=== PATIENT | male | born 1950 | race Caucasian/White ===

== ENCOUNTER 2016-10-27 12:22 | Emergency (ER) | payer MEDICARE, MEDICAID ==
[2016-10-27 12:30] VITALS: TEMP 98.1
[2016-10-27] MEDS ORDERED: Sodium Chloride 0.9% 1,000 ML IV STA (12:46)
--- NOTE | 2016-10-27 12:52 | ED PDOC ---
HPI: General Adult Time Seen by Provider: 10/27/16 12:29 Chief Complaint (Nursing): Upper Extremity Problem/Injury Chief Complaint (Provider): tremors History Per: Patient History/Exam Limitations: no limitations Onset/Duration Of Symptoms: Days (4) Current Symptoms Are (Timing): Still Present Additional Complaint(s): Pt. with [place]'s has increased tremors for 4 days. Gets tremors routinely but worse now. Has a neuro transmitter that triggers less tremors when it is activated. Dr. Dia gets it activated, but did not have an appt available but was told to come to the ED. Pt. has no pain, weakness, headaches, dizziness, numbness, tingles, chest pain, dyspnea. No fall or hit his head. No neck pain. Past Medical History Reviewed: Nursing Documentation, Vital Signs Vital Signs: Last Vital Signs Temp 98.1 F 10/27/16 12:28 Pulse 70 10/27/16 12:28 Resp 20 10/27/16 12:28 BP 103/80 10/27/16 12:28 Pulse Ox 98 10/27/16 12:55 - Medical History PMH: Benign Prostatic Hyperplasia, COPD, Dementia, Diabetes (type II), Emphysema , Hepatitis (C), HTN, Hypercholesterolemia, Parkinson's Disease, Sleep Apnea - Surgical History Surgical History: Appendectomy, Hernia Repair (x 14 ) Other surgeries: nerve stimulator - Family History Family History: States: Unknown Family Hx - Social History Current smoker - smoking cessation education provided: No Alcohol: None Drugs: Denies - Home Medications Home Medications: Ambulatory Orders Medication Instructions Recorded Carbidopa/Levodopa [Sinemet 25-250 1 tab PO TID 11/01/14 25 mg-250 mg] Clonazepam [Clonazepam] 0.5 mg PO BID 11/01/14 Docusate Sodium [Docusate Sodium] 250 mg PO DAILY 11/01/14 Dutasteride [Avodart] 0.5 mg PO DAILY 11/01/14 Finasteride [Finasteride] 5 mg PO DAILY 11/01/14 Fluticasone Propionate 50 mcg LEOBARDO PRN PRN 11/01/14 [Fluticasone Propionate 120 ml] Gemfibrozil [Gemfibrozil] 600 mg PO BID 11/01/14 Memantine HCl [Namenda Xr] 7 mg PO DAILY 11/01/14 Metformin Hydrochloride [Metformin 500 mg PO BID 11/01/14 HCl] Mometasone/Formoterol [Dulera] 1 earnest INH PRN PRN 11/01/14 Omeprazole [Omeprazole] 20 mg PO DAILY 11/01/14 Paroxetine HCl [Paroxetine 20 mg PO DAILY 11/01/14 Hydrochloride] Pramipexole Di-HCl [Mirapex] 0.125 mg PO DAILY 11/01/14 Rotigotine [Neupro] 6 mg TD DAILY 11/01/14 Tamsulosin Hydrochloride 0.4 mg PO BID 11/01/14 [Tamsulosin Hydrochloride] Valsartan/Hydrochlorothiazide 1 tab PO DAILY 11/01/14 [Valsartan-Hydrochlorothiazide 12.5 mg-160 mg] Codeine Phosphate/Promethazi 5 ml PO Q6 #80 ml 01/22/15 [Promethazine with Codeine 10 mg/5 ml-6.25 mg/] Guaifenesin/Pseudoephedrne HCl 1 tab PO DAILY PRN #30 ter 01/22/15 [Mucinex D 600 mg-60 mg] Azithromycin 250 mg PO DAILY #6 tab 06/28/15 Prednisone 40 mg PO DAILY #8 tab 06/28/15 Ciprofloxacin/Ciprofloxa HCl 500 mg PO BID #20 ter 11/16/15 [Ciprofloxacin] Cyclobenzaprine [Cyclobenzaprine 10 mg PO TID PRN #15 tab 06/12/16 HCl] Naproxen [Naprosyn] 500 mg PO BID #20 tab 06/12/16 traMADol [Ultram] 50 mg PO TID PRN #15 tab 06/27/16 - Allergies Allergies/Adverse Reactions: Allergies Allergy/AdvReac Type Severity Reaction Status Date / Time iodine Allergy URTICARIA Verified 10/27/16 12:27 latex Allergy URTICARIA Verified 10/27/16 12:27 Review of Systems ROS Statement: Except As Marked, All Systems Reviewed And Found Negative Neurological: Positive for: Other (tremors) Physical Exam - Reviewed Nursing Documentation Reviewed: Yes Vital Signs Reviewed: Yes - Physical Exam Appears: Positive for: Non-toxic, No Acute Distress Head Exam: Positive for: ATRAUMATIC, NORMAL INSPECTION, NORMOCEPHALIC Skin: Positive for: Normal Color, Warm, DRY Eye Exam: Positive for: EOMI, Normal appearance, PERRL ENT: Positive for: Normal ENT Inspection Neck: Positive for: Normal, Painless ROM Cardiovascular/Chest: Positive for: Regular Rate, Rhythm Respiratory: Positive for: CNT, Normal Breath Sounds Gastrointestinal/Abdominal: Positive for: Normal Exam, Bowel Sounds, Soft Back: Positive for: Normal Inspection. Negative for: L CVA Tenderness, R CVA Tenderness Extremity: Positive for: Normal ROM. Negative for: Tenderness, Pedal Edema Neurologic/Psych: Positive for: Alert, block greaser II-XII, Oriented, Other (tremors and shakes of different extremities sporadically). Negative for: Motor/Sensory Deficits - Laboratory Results Result Diagrams: 10/27/16 12:51 10/27/16 12:51 Interpretation Of Abn Labs: 22 bun - ECG Interpretation Of Abn EKG: afib rate controlled Interpretation Of ECnd ekg: afib controlled O2 Sat by Pulse Oximetry: 98 Pulse Ox Interpretation: Normal - Progress ED Course And Treament: 1619: Stable. Attempts made to contact Dr. Dia, pt. neurologist. No response. Pt. ekg shows afib. No old. Spoke with pcp Dr. Gallagher. Old EKG 2014 is sinus. Pt. with no chest pain. Complains about falling if he leaves and not able to go to pcp office. Spoke with [facility] for Dr. Sparks. Will admit tele. obs. No anticoagulant. Pt. fall risk. Will give asa 81mg. Disposition - Clinical Impression Clinical Impression: New onset atrial fibrillation, Parkinsonian features - Patient ED Disposition Is Patient to be Admitted: Yes Counseled Patient/Family Regarding: Studies Performed, Diagnosis - Disposition Disposition Time: 16:31 Condition: FAIR - Pt Status Changed To: Hospital Disposition Of: Observation - POA Present On Arrival: None
[2016-10-27 13:12] LABS: BASO % 0.7 % (0.0-2.0); EOS # 0.2 K/uL (0.0-0.7); EOS % 2.5 % (0.0-4.0); HEMATOCRIT 36.5 % (35.0-51.0); LYMPH # 2.2 K/uL (1.0-4.3); LYMPH % 35.1 % (20.0-40.0); MEAN CELL VOLUME 95.9 fl (80.0-94.0); MEAN CORPUSCULAR HEMOGLOBIN 31.9 pg (27.0-31.0); MEAN CORPUSCULAR HGB CONC 33.2 g/dL (33.0-37.0); MEAN PLATELET VOLUME 7.8 fl (7.2-11.7); MONO # 0.5 K/uL (0.0-0.8); MONO % 8.3 % (0.0-10.0); NEUT # 3.3 K/uL (1.8-7.0); NEUT % 53.4 % (50.0-75.0); RED CELL DISTRIBUTION WIDTH 13.8 % (11.5-14.5); WHITE BLOOD COUNT 6.2 K/uL (4.8-10.8)
[2016-10-27 13:21] LABS: ALB/GLOB RATIO 1.3 (1.0-2.1); ALCOHOL SERUM < 10 mg/dl (0-10); ALKALINE PHOSPHATASE 91 U/L (38-126); ALT/SGPT 28 U/L (21-72); AST/SGOT 27 U/L (17-59); BILIRUBIN,TOTAL 0.5 mg/dl (0.2-1.3); BLOOD UREA NITROGEN 24 mg/dl (9-20); CALCIUM 9.8 mg/dL (8.4-10.2); CARBON DIOXIDE 22 mmol/L (22-30); CHLORIDE 110 mmol/L (98-107); GFR AFRICAN-AMERICAN > 60; GLUCOSE,RANDOM 105 mg/dL (75-110); POTASSIUM 4.7 MMOL/L (3.6-5.0); SODIUM 139 mmol/l (132-148); TOTAL PROTEIN 7.7 G/DL (6.3-8.2)
--- NOTE | 2016-10-27 13:43 | CT ---
PROCEDURE: CT HEAD WITHOUT CONTRAST. HISTORY: tremors COMPARISON: None available. TECHNIQUE: Axial computed tomography images were obtained through the head/brain without intravenous contrast. Radiation dose: Total exam DLP = 1192.70 mGy-cm. FINDINGS: HEMORRHAGE: No intracranial hemorrhage. BRAIN: No mass effect or edema. No evidence of acute infarct. Bilateral external stimulator wires extent through the high frontal calvarium through the basal ganglia to the thalami/ cerebral peduncle AMY bilaterally. VENTRICLES: No hydrocephalus. Small cavum septum pellucidum. CALVARIUM: Unremarkable. PARANASAL SINUSES: Chronic sphenoid, ethmoid and left maxillary sinusitis. MASTOID AIR CELLS: Unremarkable as visualized. No inflammatory changes. OTHER FINDINGS: None. IMPRESSION: No evidence of intracranial hemorrhage or acute infarct. No intracranial mass. Bilateral external stimulator wires noted as above. Chronic paranasal sinusitis.
--- NOTE | 2016-10-27 13:51 | RAD ---
HISTORY: tremors COMPARISON: 06/28/2015 FINDINGS: LUNGS: No active pulmonary disease. PLEURA: No significant pleural effusion identified, no pneumothorax apparent. CARDIOVASCULAR: Normal. OSSEOUS STRUCTURES: No significant abnormalities. VISUALIZED UPPER ABDOMEN: Normal. OTHER FINDINGS: Electronic nodule overlying upper right karli thorax, laterally. IMPRESSION: No active disease.
[2016-10-27 20:10] VITALS: BP 120/70; PULSE 60; RESP 18; O2SAT 97
--- NOTE | 2016-10-30 10:11 | CARD ---
APPROVED REPORT EKG Measurement Heart [id number] <Conclusion> Sinus Bradycardia Baseline Artifact Repeat EKG
--- NOTE | 2016-10-30 10:17 | CARD ---
APPROVED REPORT EKG Measurement Heart [id number] <Conclusion> Sinus Bradycardia Baseline Artifact Repeat EKG
== END 2016-10-27 17:00 | disposition home or self-care (01) ==
LOC: H.ER 12:22 → UNDOADMOB 16:18 → H.ERHOLD 16:18 → H.ER 17:00
DX: I48.91 Unspecified atrial fibrillation (principal); G20 Parkinson's disease; I10 Essential (primary) hypertension
CPT/HCPCS: 70450; 71010; 80053; 82948; 84484; 85025; 99283; G0480; J7040

== ENCOUNTER 2016-12-23 14:26 | Emergency (ER) | payer MEDICARE, MEDICAID ==
[2016-12-23 14:31] VITALS: BP 140/90; TEMP 98.3; O2SAT 99
[2016-12-23 14:59] VITALS: RESP 20
[2016-12-23] MEDS ORDERED: Albuterol-Ipratrop 3 mg / 0.5 (3 ml) UD INH STA (15:13)
--- NOTE | 2016-12-23 15:15 | ED PDOC ---
HPI: SOB/CHF/COPD Time Seen by Provider: 12/23/16 14:41 Chief Complaint (Nursing): Shortness Of Breath Chief Complaint (Provider): Shortness of Breath History Per: Patient History/Exam Limitations: no limitations Onset/Duration Of Symptoms: Days (for a few years), Worse Since (over the weekend) Current Symptoms Are (Timing): Still Present Initiating Event: Out Of Medications Context: patient has emphysema and ran out of his albuterol solution at home Current Respiratory Medications: See Home Med List, Albuterol, Steroid Inhaler, Other (anthramycin) Severity: Moderate Associated Symptoms: Other (dry cough). denies: Fever, Chest Pain, Bloody Cough , Productive Cough, Ankle/Leg Swelling Additional Complaint(s): Choco Magallanes is a 66 year old male, with a past medical history of chronic obstructive pulmonary disease, emphysema, type II diabetes mellitus, hypertension, and Parkinson's disease, who presents to the emergency department for the evaluation of shortness of breath, that the patient has been experiencing for a few years. Patient believes that his symptoms are due to his emphysema which is currently acting up, causing his shortness of breath to worsen, and prompting his visit to the emergency room. He saw a doctor on Sunday who prescribed him steroids and Anthramycin, and has since then run out of the antibiotics. Patient states that he has been using 2.5 mg of Albuterol solution at home, but has recently ran out, which he believes is the root of the cause of his worsening symptoms. Associated dry cough is currently present. Denies a fever, chest pain, or leg swelling. Of note, patient was recently seen in this emergency room and worked up for atrial fibrillation; however, all of his test work came back negative. PMD: Mague Gallagher Past Medical History Reviewed: Historical Data, Nursing Documentation, Vital Signs Vital Signs: Last Vital Signs Temp 98.3 F 12/23/16 14:28 Pulse 54 L 12/23/16 16:08 Resp 20 12/23/16 14:57 BP 140/90 12/23/16 14:28 Pulse Ox 99 12/23/16 16:08 - Medical History PMH: Benign Prostatic Hyperplasia, COPD, Dementia, Diabetes (type II), Emphysema , Hepatitis (C), HTN, Hypercholesterolemia, Parkinson's Disease, Sleep Apnea - Surgical History Surgical History: Appendectomy, Hernia Repair (x14) Other surgeries: "Brain Surgery" - Family History Family History: States: No Known Family Hx - Social History Current smoker - smoking cessation education provided: Yes (Light smoker <10 cigarettes daily) Alcohol: None Drugs: Opiates (heroin) - Home Medications Home Medications: Ambulatory Orders Medication Instructions Recorded Carbidopa/Levodopa [Sinemet 25-250 1 tab PO TID 11/01/14 25 mg-250 mg] Clonazepam [Clonazepam] 0.5 mg PO BID 11/01/14 Docusate Sodium [Docusate Sodium] 250 mg PO DAILY 11/01/14 Dutasteride [Avodart] 0.5 mg PO DAILY 11/01/14 Finasteride [Finasteride] 5 mg PO DAILY 11/01/14 Fluticasone Propionate 50 mcg LEOBARDO PRN PRN 11/01/14 [Fluticasone Propionate 120 ml] Gemfibrozil [Gemfibrozil] 600 mg PO BID 11/01/14 Memantine HCl [Namenda Xr] 7 mg PO DAILY 11/01/14 Metformin Hydrochloride [Metformin 500 mg PO BID 11/01/14 HCl] Mometasone/Formoterol [Dulera] 1 earnest INH PRN PRN 11/01/14 Omeprazole [Omeprazole] 20 mg PO DAILY 11/01/14 Paroxetine HCl [Paroxetine 20 mg PO DAILY 11/01/14 Hydrochloride] Pramipexole Di-HCl [Mirapex] 0.125 mg PO DAILY 11/01/14 Rotigotine [Neupro] 6 mg TD DAILY 11/01/14 Tamsulosin Hydrochloride 0.4 mg PO BID 11/01/14 [Tamsulosin Hydrochloride] Valsartan/Hydrochlorothiazide 1 tab PO DAILY 11/01/14 [Valsartan-Hydrochlorothiazide 12.5 mg-160 mg] Codeine Phosphate/Promethazi 5 ml PO Q6 #80 ml 01/22/15 [Promethazine with Codeine 10 mg/5 ml-6.25 mg/] Guaifenesin/Pseudoephedrne HCl 1 tab PO DAILY PRN #30 ter 01/22/15 [Mucinex D 600 mg-60 mg] Azithromycin 250 mg PO DAILY #6 tab 06/28/15 Prednisone 40 mg PO DAILY #8 tab 06/28/15 Ciprofloxacin/Ciprofloxa HCl 500 mg PO BID #20 ter 11/16/15 [Ciprofloxacin] Cyclobenzaprine [Cyclobenzaprine 10 mg PO TID PRN #15 tab 06/12/16 HCl] Naproxen [Naprosyn] 500 mg PO BID #20 tab 06/12/16 traMADol [Ultram] 50 mg PO TID PRN #15 tab 06/27/16 Albuterol 0.083% [Albuterol 0.083% 2.5 mg IH Q4 PRN #20 neb 12/23/16 Inhal Felipa (2.5 mg/3 ml) UD] Albuterol HFA [Ventolin HFA 90 2 puff IH [id number] #1 inh 12/23/16 mcg/actuation (8 g)] - Allergies Allergies/Adverse Reactions: Allergies Allergy/AdvReac Type Severity Reaction Status Date / Time iodine Allergy URTICARIA Verified 10/27/16 12:27 latex Allergy URTICARIA Verified 10/27/16 12:27 Review of Systems ROS Statement: Except As Marked, All Systems Reviewed And Found Negative Constitutional: Negative for: Fever Cardiovascular: Negative for: Chest Pain, Edema (leg swelling) Respiratory: Positive for: Cough, Shortness of Breath. Negative for: Hemoptysis , Sputum Physical Exam - Reviewed Nursing Documentation Reviewed: Yes Vital Signs Reviewed: Yes - Physical Exam Appears: Positive for: Well, Non-toxic, No Acute Distress Head Exam: Positive for: ATRAUMATIC, NORMOCEPHALIC Skin: Positive for: Normal Color, Warm, Dry Cardiovascular/Chest: Positive for: Regular Rate, Rhythm, Other (implanted device to R chest). Negative for: Murmur Respiratory: Positive for: Normal Breath Sounds. Negative for: Respiratory Distress Gastrointestinal/Abdominal: Positive for: Normal Exam, Soft. Negative for: Tenderness Extremity: Positive for: Normal ROM. Negative for: Tenderness, Swelling Neurologic/Psych: Positive for: Alert, Oriented - Laboratory Results Result Diagrams: 12/23/16 15:49 12/23/16 15:49 - ECG ECG Rhythm: Positive for: Normal QRS, Normal ST Segment, Sinus Rhythm, Sinus Bradycardia. Negative for: ST/T Changes Rate: 54 O2 Sat by Pulse Oximetry: 99 (RA) Pulse Ox Interpretation: Normal - Radiology X-Ray: Interpreted by Me, Viewed By Me X-Ray Interpretation: No Acute Disease, COPD - Progress Re-evaluation Time: 16:55 Condition: Re-examined, Improved Medical Decision Making Medical Decision Makin:41 Initial Impression: COPD Emphysema Differential Diagnoses include, but are not limited to, pneumonia and congestive heart failure. Initial Plan: * Chest X-Ray * EKG * CBC * BMP * BNP * Troponin I * Albuterol/Ipratropium 3 ml INH * predniSONE 60 mg PO * Peak Flow Pre/Post Treatment * Reevaluation 15:52 EKG read at a rate of 54 with Sinus Bradycardia, Normal QRS, and No ST/T Changes. Scribe Attestation: Documented by Eddie Estrella, acting as a scribe for Maicol Cramer MD. Provider Scribe Attestation: All medical record entries made by the Scribe were at my direction and personally dictated by me. I have reviewed the chart and agree that the record accurately reflects my personal performance of the history, physical exam, medical decision making, and the department course for this patient. I have also personally directed, reviewed, and agree with the discharge instructions and disposition. Disposition - Clinical Impression Clinical Impression: COPD (chronic obstructive pulmonary disease) - Patient ED Disposition Is Patient to be Admitted: No Doctor Will See Patient In The: Office Counseled Patient/Family Regarding: Studies Performed, Diagnosis, Need For Followup - Disposition Referrals: Mague Gallagher MD [Medical Doctor] - Disposition: Routine/Home Disposition Time: 16:57 Condition: GOOD Additional Instructions: Follow up with your PCP in 2-3 days. Return for worsening. Prescriptions: Albuterol HFA [Ventolin HFA 90 mcg/actuation (8 g)] 2 puff IH [id number] #1 inh Albuterol 0.083% [Albuterol 0.083% Inhal Felipa (2.5 mg/3 ml) UD] 2.5 mg IH Q4 PRN #20 neb PRN Reason: Cough Instructions: Emphysema (ED)
[2016-12-23] MEDS ORDERED: Albuterol-Ipratrop 3 mg / 0.5 (3 ml) UD ONE (15:34)
[2016-12-23 16:02] LABS: BLOOD UREA NITROGEN 27 mg/dl (9-20); CALCIUM 9.3 mg/dL (8.4-10.2); CARBON DIOXIDE 21 mmol/L (22-30); CHLORIDE 109 mmol/L (98-107); GFR AFRICAN-AMERICAN > 60; GLUCOSE,RANDOM 142 mg/dL (75-110); POTASSIUM 4.4 MMOL/L (3.6-5.0); SODIUM 143 mmol/l (132-148)
[2016-12-23 16:08] VITALS: PULSE 54
[2016-12-23 16:08] LABS: BASO % 0.6 % (0.0-2.0); EOS # 0.1 K/uL (0.0-0.7); EOS % 2.1 % (0.0-4.0); HEMATOCRIT 34.4 % (35.0-51.0); LYMPH # 1.6 K/uL (1.0-4.3); LYMPH % 29.9 % (20.0-40.0); MEAN CORPUSCULAR HEMOGLOBIN 32.1 pg (27.0-31.0); MEAN CORPUSCULAR HGB CONC 33.8 g/dL (33.0-37.0); MEAN PLATELET VOLUME 8.3 fl (7.2-11.7); MONO # 0.3 K/uL (0.0-0.8); MONO % 5.6 % (0.0-10.0); NEUT # 3.2 K/uL (1.8-7.0); NEUT % 61.8 % (50.0-75.0); NRBC % 0.1 % (0.0-0.0); RED CELL DISTRIBUTION WIDTH 13.8 % (11.5-14.5); WHITE BLOOD COUNT 5.3 K/uL (4.8-10.8)
--- NOTE | 2016-12-24 08:53 | RAD ---
HISTORY: dyspnea COMPARISON: No prior. TECHNIQUE: Chest PA and lateral FINDINGS: LUNGS: No active pulmonary disease. PLEURA: No significant pleural effusion identified. No pneumothorax apparent. CARDIOVASCULAR: Normal. Pacemaker leads in place. OSSEOUS STRUCTURES: No significant abnormalities. VISUALIZED UPPER ABDOMEN: Normal. OTHER FINDINGS: None. IMPRESSION: No active disease.
--- NOTE | 2016-12-25 09:01 | CARD ---
APPROVED REPORT EKG Measurement Heart [id number] <Conclusion> Sinus bradycardia with marked sinus arrhythmia Left axis deviation Nonspecific ST abnormality Abnormal ECG
== END 2016-12-23 16:55 | disposition home or self-care (01) ==
LOC: H.ER 14:26
DX: J43.9 Emphysema, unspecified (principal); E11.9 Type 2 diabetes mellitus without complications; E78.00 Pure hypercholesterolemia, unspecified; F03.90 Unspecified dementia, unspecified severity, without behavioral disturbance, psychotic disturbance, mood disturbance, and anxiety; G20 Parkinson's disease; I10 Essential (primary) hypertension; Z79.84 Long term (current) use of oral hypoglycemic drugs; J44.9 Chronic obstructive pulmonary disease, unspecified; R06.02 Shortness of breath; G47.30 Sleep apnea, unspecified; F17.210 Nicotine dependence, cigarettes, uncomplicated; R00.1 Bradycardia, unspecified

== ENCOUNTER 2017-05-01 07:04 | Day surgery (SDC) | payer MEDICARE, MEDICAID ==
[2017-05-01] MEDS: Lactated Ringer's 500 ML IV ONE (07:33)
[2017-05-01] MEDS ORDERED: Propofol 10 mg/ml Inj (20 ML) ONE (08:19)
[2017-05-01] MEDS ORDERED: ePHEDrine 50 mg/ml Inj ONE (08:59)
[2017-05-01 09:34] VITALS: BP 89/56; PULSE 57; RESP 16; TEMP 97.2; O2SAT 100
== END 2017-05-01 09:43 | disposition home or self-care (01) ==
LOC: H.ENDO 07:04
PROVIDERS: ATTEND Internal Medicine Gastroenterology
DX: Z12.11 Encounter for screening for malignant neoplasm of colon (principal); K64.1 Second degree hemorrhoids; K30 Functional dyspepsia; K44.9 Diaphragmatic hernia without obstruction or gangrene; K29.70 Gastritis, unspecified, without bleeding; K20.9 Esophagitis, unspecified
CPT/HCPCS: 43239; 82948; 88305; G0121; J2704; J7120

== ENCOUNTER 2017-08-12 01:48 | Emergency (ER) | payer MEDICARE, MEDICAID ==
[2017-08-12 01:54] VITALS: BP 147/69; PULSE 54; RESP 18; TEMP 97.1; O2SAT 97
--- NOTE | 2017-08-12 02:17 | ED PDOC ---
HPI: General Adult Time Seen by Provider: 08/12/17 02:02 Chief Complaint (Nursing): ENT Problem Chief Complaint (Provider): Epistaxis History Per: Patient History/Exam Limitations: no limitations Onset/Duration Of Symptoms: Hrs (x2), Persistent Current Symptoms Are (Timing): Gone Now Additional Complaint(s): 67 year old male presents to ED with complaints of persistent epistaxis x2 hours , has a past medical history including but not limited to peripheral vascular disease, HTN, DM (Type II), and COPD and notes that he is taking Clavix. Patient states he blew his nose and has had persistent bleeding from the left nostril since then. By time of evaluation, patient's bleeding has resolved. PCP: Kim Past Medical History Reviewed: Historical Data, Nursing Documentation, Vital Signs Vital Signs: Last Vital Signs Temp 97.1 F L 08/12/17 01:52 Pulse 54 L 08/12/17 01:52 Resp 18 08/12/17 01:52 BP 147/69 08/12/17 01:52 Pulse Ox 97 08/12/17 02:19 - Medical History PMH: Arthritis, Benign Prostatic Hyperplasia, Bipolar Disorder, COPD, Dementia, Diabetes (type II), Emphysema, Hepatitis (C), HTN, Hypercholesterolemia, Parkinson's Disease, Sleep Apnea Denies: Chronic Kidney Disease - Surgical History Surgical History: Appendectomy, Endoscopy, Hernia Repair (x14) - Family History Family History: States: Unknown Family Hx - Social History Current smoker - smoking cessation education provided: No Ex-Smoker (has not smoked in the last 12 months): No Alcohol: None Drugs: Opiates (Heroin x1 year ago) - Home Medications Home Medications: Ambulatory Orders Medication Instructions Recorded Atorvastatin [Lipitor] 10 mg PO DAILY 05/01/17 Cephalexin [cephalexin] 500 mg PO BID 05/01/17 Clonazepam [Klonopin] 0.5 mg PO BID 05/01/17 Dutasteride [Avodart] 0.5 mg PO DAILY 05/01/17 Gemfibrozil [Lopid] 600 mg PO BID 05/01/17 Lurasidone Hydrochloride [Latuda] 40 mg PO DAILY 05/01/17 Meloxicam [Mobic] 15 mg PO DAILY 05/01/17 Memantine HCl [Namenda Xr] 28 mg PO DAILY 05/01/17 Omeprazole 20 mg PO DAILY 05/01/17 Tamsulosin [Flomax] 0.8 mg PO DAILY 05/01/17 Topiramate [Topamax] 100 mg PO TID 05/01/17 Valsartan/Hydrochlorothiazide 1 each PO DAILY 05/01/17 [Diovan Hct 160-12.5 mg Tab] metFORMIN [glucOPHAGE] 500 mg PO BID 05/01/17 Oxymetazoline 0.05% [Oxymetazoline 1 spr NS TID #1 bottle 08/12/17 HCl 30 Ml] - Allergies Allergies/Adverse Reactions: Allergies Allergy/AdvReac Type Severity Reaction Status Date / Time iodine Allergy URTICARIA Verified 06/23/17 13:44 latex Allergy URTICARIA Verified 06/23/17 13:44 Review of Systems ROS Statement: Except As Marked, All Systems Reviewed And Found Negative ENT: Positive for: Other (Epistaxis) Physical Exam - Reviewed Nursing Documentation Reviewed: Yes Vital Signs Reviewed: Yes - Physical Exam Appears: Positive for: Non-toxic, No Acute Distress Head Exam: Positive for: ATRAUMATIC Skin: Positive for: Normal Color, Warm, Dry Eye Exam: Positive for: Normal appearance, EOMI, PERRL ENT: Positive for: Normal ENT Inspection (No active bleeding in the nares. No dried blood in nostrils.), Pharynx Is (Clear) Neck: Positive for: Normal, Painless ROM, Supple Neurologic/Psych: Positive for: Alert, Oriented - ECG O2 Sat by Pulse Oximetry: 97 (RA) Pulse Ox Interpretation: Normal Medical Decision Making Medical Decision Makin Initial impression: epistaxis Initial plan: Patient is stable for discharge home. Provider recommends patient to return to ED if bleeding recurs and is uncontrollable. Scribe Attestation: Documented by Marissa Chaves acting as a scribe for Maicol Cramer MD. Scribe Attestation: All medical record entries made by the Scribe were at my direction and personally dictated by me. I have reviewed the chart and agree that the record accurately reflects my personal performance of the history, physical exam, medical decision making, and the department course for this patient. I have also personally directed, reviewed, and agree with the discharge instructions and disposition. Disposition - Clinical Impression Clinical Impression: Nosebleed - Disposition Referrals: Keren Sparks MD [Staff Provider] - Disposition: Routine/Home Disposition Time: 02:19 Condition: STABLE Additional Instructions: Use nasal saline spray every day. Use afrin when bleeding starts. Hold pressure for 15 min when bleeding. Return for prolonged recurrent bleeding. Prescriptions: Oxymetazoline 0.05% [Oxymetazoline HCl 30 Ml] 1 spr NS TID #1 bottle Instructions: Nosebleed (ED) Forms: [employer] ([place])
== END 2017-08-12 02:24 | disposition home or self-care (01) ==
LOC: H.ER 01:48
DX: R04.0 Epistaxis (principal); E11.9 Type 2 diabetes mellitus without complications; E78.00 Pure hypercholesterolemia, unspecified; F03.90 Unspecified dementia, unspecified severity, without behavioral disturbance, psychotic disturbance, mood disturbance, and anxiety; F31.9 Bipolar disorder, unspecified; G20 Parkinson's disease; I10 Essential (primary) hypertension; Z79.84 Long term (current) use of oral hypoglycemic drugs

== ENCOUNTER 2017-12-17 23:39 | Emergency (ER) | payer MEDICARE, MEDICAID ==
[2017-12-17 23:48] VITALS: BMI 32.1
[2017-12-18 00:06] VITALS: BP 133/83; PULSE 56; RESP 18; TEMP 99.1; O2SAT 99
--- NOTE | 2017-12-18 00:28 | ED PDOC ---
HPI: Male Pain Time Seen by Provider: 12/17/17 23:52 Chief Complaint (Nursing): Male Genitourinary Chief Complaint (Provider): Male Genitourinary History Per: Patient History/Exam Limitations: no limitations Associated Symptoms: denies: Fever, Vomiting Additional Complaint(s): 67 years old x-drug abuser male with history of diabetes, hypertension, Parkinson and COPD presents to the ED requiring assistance in attaching a leg bag after he had a prostate surgery earlier today at [facility] by Dr. Gutierrez. Patient denies any pain, fever or vomiting. PMD: non provided Past Medical History Reviewed: Historical Data, Nursing Documentation, Vital Signs Vital Signs: Last Vital Signs Temp 99.1 F 12/18/17 00:02 Pulse 56 L 12/18/17 00:02 Resp 18 12/18/17 00:02 BP 133/83 12/18/17 00:02 Pulse Ox 99 12/18/17 00:02 - Medical History PMH: Arthritis, Benign Prostatic Hyperplasia, Bipolar Disorder, COPD, Dementia, Diabetes (type II), Emphysema, Hepatitis (C), HTN, Hypercholesterolemia, Parkinson's Disease, Sleep Apnea Denies: Chronic Kidney Disease - Surgical History Surgical History: Appendectomy, Endoscopy, Hernia Repair (x14) - Family History Family History: States: Unknown Family Hx - Social History Current smoker - smoking cessation education provided: No Alcohol: None Drugs: Denies - Home Medications Home Medications: Ambulatory Orders Medication Instructions Recorded Atorvastatin [Lipitor] 10 mg PO DAILY 05/01/17 Cephalexin [cephalexin] 500 mg PO BID 05/01/17 Clonazepam [Klonopin] 0.5 mg PO BID 05/01/17 Dutasteride [Avodart] 0.5 mg PO DAILY 05/01/17 Gemfibrozil [Lopid] 600 mg PO BID 05/01/17 Lurasidone Hydrochloride [Latuda] 40 mg PO DAILY 05/01/17 Meloxicam [Mobic] 15 mg PO DAILY 05/01/17 Memantine HCl [Namenda Xr] 28 mg PO DAILY 05/01/17 Omeprazole 20 mg PO DAILY 05/01/17 Tamsulosin [Flomax] 0.8 mg PO DAILY 05/01/17 Topiramate [Topamax] 100 mg PO TID 05/01/17 Valsartan/Hydrochlorothiazide 1 each PO DAILY 05/01/17 [Diovan Hct 160-12.5 mg Tab] metFORMIN [glucOPHAGE] 500 mg PO BID 05/01/17 Oxymetazoline 0.05% [Oxymetazoline 1 spr NS TID #1 bottle 08/12/17 HCl 30 Ml] - Allergies Allergies/Adverse Reactions: Allergies Allergy/AdvReac Type Severity Reaction Status Date / Time iodine Allergy URTICARIA Verified 12/17/17 23:48 latex Allergy URTICARIA Verified 12/17/17 23:48 Review of Systems ROS Statement: Except As Marked, All Systems Reviewed And Found Negative Constitutional: Negative for: Fever Gastrointestinal: Negative for: Vomiting Physical Exam - Reviewed Nursing Documentation Reviewed: Yes - Physical Exam Appears: Positive for: Non-toxic, No Acute Distress Head Exam: Positive for: ATRAUMATIC, NORMOCEPHALIC Skin: Positive for: Normal Color, Warm, Dry Cardiovascular/Chest: Positive for: Regular Rate, Rhythm. Negative for: Murmur Respiratory: Positive for: Normal Breath Sounds. Negative for: Respiratory Distress Gastrointestinal/Abdominal: Positive for: Normal Exam, Soft, Other (heart with leg bag drainining minimal clear urine). Negative for: Tenderness Extremity: Positive for: Normal ROM Neurologic/Psych: Positive for: Alert, Oriented - ECG O2 Sat by Pulse Oximetry: 99 (RA) Pulse Ox Interpretation: Normal Medical Decision Making Medical Decision Making: Time: 1217 Catheter is properly attached by the RN, no leaking now.. Patient reports improvement and is stable for discharge. he will follow up with Dr Gutierrez. Scribe Attestation: Documented by Gema Guzman, acting as a scribe for Santiago Colin MD. Provider Scribe Attestation: All medical record entries made by the Scribe were at my direction and personally dictated by me. I have reviewed the chart and agree that the record accurately reflects my personal performance of the history, physical exam, medical decision making, and the department course for this patient. I have also personally directed, reviewed, and agree with the discharge instructions and disposition. Disposition - Clinical Impression Clinical Impression: Examination, medical, general - Patient ED Disposition Is Patient to be Admitted: No Counseled Patient/Family Regarding: Studies Performed, Diagnosis, Need For Followup - Disposition Disposition: Routine/Home Disposition Time: 00:00 Condition: IMPROVED Additional Instructions: follow up with Dr Gutierrez at [place] as instructed return to the ED with any worsening or concerning symptoms Instructions: How to Care for Your Heart Catheter, Male Forms: [facility] ([place])
== END 2017-12-18 00:46 | disposition home or self-care (01) ==
LOC: H.ER 23:39
DX: N40.0 Benign prostatic hyperplasia without lower urinary tract symptoms (principal); Z43.6 Encounter for attention to other artificial openings of urinary tract; E11.9 Type 2 diabetes mellitus without complications; E78.00 Pure hypercholesterolemia, unspecified; Z86.59 Personal history of other mental and behavioral disorders; G20 Parkinson's disease; I10 Essential (primary) hypertension; J44.9 Chronic obstructive pulmonary disease, unspecified; Z79.84 Long term (current) use of oral hypoglycemic drugs

== ENCOUNTER 2018-08-23 11:00 | Emergency (ER) | payer MEDICARE, MEDICAID ==
[2018-08-23 11:05] VITALS: BMI 28.3
[2018-08-23 11:06] VITALS: BP 120/75; RESP 16; TEMP 98.3; O2SAT 97
--- NOTE | 2018-08-23 12:15 | ED PDOC ---
Lower Extremity Pain/Injury Time Seen by Provider: 08/23/18 11:32 Chief Complaint (Nursing): Lower Extremity Problem/Injury Chief Complaint (Provider): Right Great Toe Pain History Per: Patient History/Exam Limitations: no limitations Onset/Duration Of Symptoms: Hrs (this morning) Current Symptoms Are (Timing): Still Present Additional Complaint(s): 68 year old male with pmhx of diabetes presents to the ED for evaluation of right great toe pain. Patient reports that this morning he slipped at home while reaching for his cellphone, his left leg going out in front of him and his body landing on top of his right great toe. He notes feeling a crack upon impact. Denies other injury and loss of consciousness. PMD: Jake Sher Past Medical History Reviewed: Historical Data, Nursing Documentation, Vital Signs Vital Signs: Last Vital Signs Temp 98.3 F 08/23/18 11:05 Pulse 52 L 08/23/18 11:05 Resp 16 08/23/18 11:05 BP 120/75 08/23/18 11:05 Pulse Ox 97 08/23/18 11:05 - Medical History PMH: Arthritis, Benign Prostatic Hyperplasia, Bipolar Disorder, COPD, Dementia, Diabetes (type II), Emphysema, Hepatitis (C), HTN, Hypercholesterolemia, Parkinson's Disease, Sleep Apnea Denies: Chronic Kidney Disease - Surgical History Surgical History: Appendectomy, Endoscopy, Hernia Repair (x14) - Family History Family History: States: Unknown Family Hx - Social History Current smoker - smoking cessation education provided: No Alcohol: None Drugs: Denies - Home Medications Home Medications: Ambulatory Orders Medication Instructions Recorded Atorvastatin [Lipitor] 10 mg PO DAILY 05/01/17 Cephalexin [cephalexin] 500 mg PO BID 05/01/17 Clonazepam [Klonopin] 0.5 mg PO BID 05/01/17 Dutasteride [Avodart] 0.5 mg PO DAILY 05/01/17 Gemfibrozil [Lopid] 600 mg PO BID 05/01/17 Lurasidone Hydrochloride [Latuda] 40 mg PO DAILY 05/01/17 Meloxicam [Mobic] 15 mg PO DAILY 05/01/17 Memantine HCl [Namenda Xr] 28 mg PO DAILY 05/01/17 Omeprazole 20 mg PO DAILY 05/01/17 Tamsulosin [Flomax] 0.8 mg PO DAILY 05/01/17 Topiramate [Topamax] 100 mg PO TID 05/01/17 Valsartan/Hydrochlorothiazide 1 each PO DAILY 05/01/17 [Diovan Hct 160-12.5 mg Tab] metFORMIN [glucOPHAGE] 500 mg PO BID 05/01/17 Oxymetazoline 0.05% [Oxymetazoline 1 spr NS TID #1 bottle 08/12/17 HCl 30 Ml] - Allergies Allergies/Adverse Reactions: Allergies Allergy/AdvReac Type Severity Reaction Status Date / Time iodine Allergy URTICARIA Verified 08/23/18 11:25 latex Allergy URTICARIA Verified 08/23/18 11:25 Review of Systems ROS Statement: Except As Marked, All Systems Reviewed And Found Negative Musculoskeletal: Positive for: Foot Pain (right great toe pain) Neurological: Negative for: Other (loss of consciousness) Physical Exam - Reviewed Nursing Documentation Reviewed: Yes Vital Signs Reviewed: Yes - Physical Exam Appears: Positive for: No Acute Distress Skin: Positive for: Normal Color, Warm Pulses-Dorsalis Pedis (L): 2+ Pulses-Dorsalis Pedis (R): 2+ Extremity: Positive for: Normal ROM (of bilateral LE), Tenderness (tender diffusely to right great toe). Negative for: Swelling (or bruising to right great toe) Neurologic/Psych: Positive for: Gait (steady, able to bear weight). Negative fo r: Motor/Sensory Deficits - ECG O2 Sat by Pulse Oximetry: 97 (RA) Pulse Ox Interpretation: Normal - Radiology X-Ray: Viewed By Ar X-Ray Interpretation: No Acute Disease Medical Decision Making Medical Decision Making: Time: 1151 Initial Impression: right great toe pain s/p fall Initial Plan: --XR Right foot Scribe Attestation: Documented by Nahomi Mancilla, acting as a scribe for Diane Slade MD. Provider Scribe Attestation: All medical record entries made by the Scribe were at my direction and personally dictated by me. I have reviewed the chart and agree that the record accurately reflects my personal performance of the history, physical exam, medical decision making, and the department course for this patient. I have also personally directed, reviewed, and agree with the discharge instructions and disposition Disposition - Clinical Impression Clinical Impression: Strain of great toe of right foot - Patient ED Disposition Is Patient to be Admitted: No Doctor Will See Patient In The: Office Counseled Patient/Family Regarding: Diagnosis, Need For Followup - Disposition Disposition: Routine/Home Disposition Time: 12:15 Condition: STABLE Instructions: Toe Injury Forms: [facility] ([place]bian) - POA Present On Arrival: Falls Or Trauma
--- NOTE | 2018-08-23 14:56 | RAD ---
PROCEDURE: Radiographs of the right great toe. TECHNIQUE:: AP radiograph of the right foot, with oblique and lateral view of the right great toe. COMPARISON: None. FINDINGS: BONES: Normal. No fracture. JOINTS: Osteoarthritic changes are mild. SOFT TISSUES: Normal. OTHER FINDINGS: None. IMPRESSION: Unremarkable study. Specifically no acute abnormalities referable to the right great toe radiographs.
[2018-08-23 15:25] VITALS: PULSE 70
== END 2018-08-23 12:59 | disposition home or self-care (01) ==
LOC: H.ER 11:00
DX: S96.911A Strain of unspecified muscle and tendon at ankle and foot level, right foot, initial encounter (principal); W18.49XA Other slipping, tripping and stumbling without falling, initial encounter; E11.8 Type 2 diabetes mellitus with unspecified complications; Z86.59 Personal history of other mental and behavioral disorders; B19.20 Unspecified viral hepatitis C without hepatic coma; I10 Essential (primary) hypertension

== ENCOUNTER 2018-09-17 06:16 | Day surgery (SDC) | payer MEDICARE, MEDICAID ==
[2018-09-06 16:28] VITALS: BMI 28.2
[2018-09-17] MEDS ORDERED: Rocuronium 10 mg/ml (5 ml) ONE (07:39)
[2018-09-17] MEDS ORDERED: Propofol 10 mg/ml Inj (20 ML) ONE (07:39)
[2018-09-17] MEDS ORDERED: Midazolam 2 MG/2 ML VIAL ONE (07:39)
[2018-09-17] MEDS ORDERED: Lidocaine 4% (Laryng-O-Jet) Kit MM ONE (07:40)
[2018-09-17] MEDS ORDERED: Lidocaine 1% 5ml Abboject ONE (07:40)
[2018-09-17] MEDS ORDERED: Succinylcholine Chloride 20 mg/ml Syr (5 ml) IV ONE (07:41)
[2018-09-17] MEDS ORDERED: Phenylephrine 10 mg/ml Inj ONE (07:41)
[2018-09-17] MEDS ORDERED: Lidocaine 1% w Epi 1:100,000 Inj ONE (07:59)
[2018-09-17] MEDS ORDERED: Liquid Adhesive TOP ONE (07:59)
[2018-09-17] MEDS ORDERED: Bacitracin Ointment 30 GM TUBE ONE (07:59)
[2018-09-17] MEDS ORDERED: EPINEPHrine 1 mg/ml (1:1000) Inj ONE ×2 (08:01→09:09)
[2018-09-17] MEDS ORDERED: Lactated Ringer's 1,000 ML IV ONE (08:05)
[2018-09-17 08:28] LABS: INR 1.2; PROTHROMBIN TIME 13.3 Seconds (9.8-13.1)
[2018-09-17 08:30] LABS: PARTIAL THROMBOPLASTIN TIME 41.4 Seconds (25.6-37.1)
[2018-09-17] MEDS ORDERED: Bupivacaine HCl 0.5% PF (30 ml) Inj ONE (09:09)
[2018-09-17] MEDS ORDERED: Bupivacaine HCl 0.25% PF (30 ml) Inj ONE (09:09)
[2018-09-17] MEDS ORDERED: Lidocaine/Epi 1% 1:100000 20 ML IJ ONE (10:20)
[2018-09-17] MEDS ORDERED: EPINEPHrine 1 mg/ml (1:1000) Inj IV ONE (10:20)
[2018-09-17] MEDS ORDERED: Neostigmine 1:1000 (1 mg/ml) Inj ONE (10:55)
--- NOTE | 2018-09-17 11:42 | PCM.SURG1 ---
Surgeon's Initial Post Op Note - Surgeon's Notes Surgeon: Wilfredo Luu MD Senior Sales Associate: Haily Akhtar PA-C Type of Anesthesia: General Endo Pre-Operative Diagnosis: Right shoulder tendinitis, impingement Operative Findings: see op report Post-Operative Diagnosis: RTC tear , same as pre-op dx Operation Performed: Right shoulder arthroscopy, double row RTC repair, subac romial decompression, biceps tenotomy Specimen/Specimens Removed: none Estimated Blood Loss: EBL {In ML}: 4 Date of Surgery/Procedure: 09/17/18 Time of Surgery/Procedure: 09:00
[2018-09-17] MEDS ORDERED: Lactated Ringer's 1,000 ML IV SCH (12:00)
--- NOTE | 2018-09-17 12:00 | PCM.ANESB1 ---
Interscalene Block - Brachial Plexus Date of Procedure: 09/17/18 Anesthesiologist: Dr. Cedillo Pre-Procedure Diagnosis: Torn rotator cuff of the right shoulder Post-Procedure Diagnosis: Torn rotator cuff of the right shoulder Procedure Performed: Interscalene Block of Brachial Plexus Right - Procedure Interscalene Block of Brachial Plexus: This procedure was explained to the patient that it is for post-operative pain management. Consent was obtained after a thorough discussion with the patient regarding the benefits and possible complications of local anesthetic block of the Brachial Plexus at the Interscalene area. The patient was brought to the Operating Room and standard monitors were applied. Time out was held with the circulating nurse to confirm the correct surgery and appropriate block. After applying Oxygen by nasal cannula and administering IV Sedation, the patient's head was gently rotated away from the right operative shoulder and the anterior scalene groove was carefully palpated. The ultrasound transducer was then applied to the skin in the transverse plane and the brachial plexus was visualized lateral to the carotid artery and in between the anterior and middle scalene muscles. After identification,the anterior lateral portion of the neck was prepped with Chloraprep solution and Lidocaine 1% was injected subcutaneously for topical analgesia. At this point, a # 22 gauge Stimuplex 2 inches insulated needle was inserted into the interscalene groove and directed in a caudal and midline direction. The needle was inserted lateral to the ultrasound transducer in-plane towards the brachial plexus in a [id number] direction. Needle advancement was performed carefully under direct ultrasound visualization. Nerve stimulator was used and twitched of the affected extremity including the hand brachialis muscles, biceps and the deltoid was obtained at a current of 0.3MA. After repeated negative aspiration, 5cc of 0.325% Bupivacaine with 1:200,000 epinephrine were injected and this was followed with 25cc of 0.325% Bupivacaine with 1:200,000 epinephrine. Under ultrasound guidance the local anesthetics were observed surrounding the roots of the brachial plexus. The needle was removed intact and sterile dressing was applied. The patient had stable vital signs, was conscious and in no apparent distress. The patient tolerated the interscalene block of the bracheal plexus well with stable vital signs and was prepared for subsequent surgery.
[2018-09-17 12:44] VITALS: RESP 18
[2018-09-17 14:42] VITALS: BP 132/78; PULSE 58; TEMP 97.8; O2SAT 97
--- NOTE | 2018-09-17 23:18 | OP ---
PROCEDURE DATE: 09/17/2018 ATTENDING SURGEON: Wilfredo Luu MD LAY OUT AND DETAIL DRAFTER: Haily Akhtar PA-C PREOPERATIVE DIAGNOSES: 1. Right shoulder rotator cuff tear. 2. Impingement. 3. Synovitis. POSTOPERATIVE DIAGNOSES: 1. Right shoulder extensive synovitis. 2. Full-thickness supraspinatus and infraspinatus tear. 3. Biceps tendon tear. 4. Diffuse degenerative labral tear. 5. Capsular adhesions. 6. Subacromial impingement. 7. Acromioclavicular joint arthritis. PROCEDURES: 1. Right shoulder double row rotator cuff repair. 2. Synovectomy. 3. Anterior capsular lysis of adhesions. 4. Subacromial decompression with acromioplasty. 5. Acromioclavicular joint resection. ANESTHESIA TYPE: General and interscalene block. ESTIMATED BLOOD LOSS: 10 mL. SPECIMENS: None. COMPLICATIONS: None. CLOSURE: Primary. FLUIDS: See anesthesia sheet. ANTIBIOTICS: See anesthesia sheet. INDICATIONS: After failing a course of nonoperative therapy, the patient elected to undergo the above procedures. In the office the risks and possible complications of the shoulder arthroscopy were discussed in detail with the patient. These risks include, but are not limited to, continued pain, lack of motion, infection, vascular injury, and nerve injury including axillary nerve dysfunction, reflex sympathetic dystrophy, compartment syndrome, limb loss, and . The patient expressed an understanding of the risks and possible benefits of the procedure, and was also made aware of the alternatives to surgery. An informed consent was obtained, and was checked immediately preop. Procedure 1: The patient was correctly identified in the holding area and the right shoulder was marked with the surgeon's initials. The patient was transported to the operating room and placed in the supine position, and general anesthesia and regional interscalene block was obtained. A preoperative orthopedic examination revealed a passive range of motion of 160 degrees of forward elevation, 50 degrees of external rotation, and 160 degrees of abduction. Stability examination revealed no instability. Procedure 2: The patient was then placed in a beach chair position utilizing the beach chair positioning device. The patient's head was stabilized and the indicated upper extremity was prepped and draped in the standard surgical fashion. The anatomic structures were outlined with a skin marker, and 1% lidocaine with epinephrine was injected into the posterior, anterior, and lateral portal areas. A #21-gauge spinal needle was placed in the glenohumeral joint from the posterior portal and 10 mL of sterile saline was injected into the glenohumeral joint. Return of fluid indicated correct needle placement into the joint. The needle was then withdrawn and a #11 blade was used to make a 1-cm incision at the posterior portal site. Next, the arthroscopic blunt trocar was inserted into the glenohumeral joint. A #21-gauge spinal needle was placed through the anterior rotator interval, and the anterior portal was made with a #11 blade after the spinal needle was withdrawn. A 7-mm cannula was then inserted after the skin incision was made and the arthroscopic probe was then used to examine the internal structures of the glenohumeral joint. With the shoulder in abducted and externally rotated position, the articular surface of the rotator cuff was visualized. The arthroscope and probe were then switched from posterior to anterior. The posterior labrum, posterior capsule, and biceps anchor reflection was then inspected with the arthroscope in the anterior portal position. Examination of the glenohumeral joint revealed: 1. Diffuse labral tear. 2. Synovitis. 3. Biceps tendon tear. 4. Capsular adhesions. Using the probe, the labrum was circumferentially assessed for tear. Tears were noted at anterior, posterior and superior labrum. Using the 4.0 motorized shaver and radiofrequency probe, the torn edges of the labrum were debrided until stable rim, preventing any further propagation. The radiofrequency device was introduced through the anterior portal and a radiofrequency anterior capsular rotator interval lysis of adhesions was performed. The anterior capsule was released to optimize range of motion. The radiofrequency device was used to provide hemostasis during this procedure. After the lysis of adhesions, passive range of motion measured 180 degrees of forward elevation, 50 degrees of external rotation, and 160 degrees of abduction. Upon careful arthroscopic evaluation of biceps tendon and its anchor site at the labrum, it was noted to be highly frayed and tears not amenable to repair. Due to tissue quality and the patient's age, decision was made to proceed with biceps tenotomy. Using arthroscopic scissors, biceps tenotomy was successfully performed. The loose edges of labrum were debrided using radiofrequency probe and arthroscopic shaver. Excessive glenohumeral synovitis was cleared with a 4.0 mm full radius shaver. The hypertrophic, erythematous synovium was resected. Hemostasis was maintained with the radiofrequency device. At this point, the arthroscope was withdrawn from the glenohumeral joint and subacromial space was then entered using a blunt trocar. Gentle resistance sweeping against the coracoacromial ligament confirmed proper placement of the sheath and the arthroscope was inserted. A 1-cm incision was made at the inferolateral acromial area to create the lateral portal. Examination of the subacromial space revealed: 1. Full-thickness supraspinatus and infraspinatus tear. 2. Impingement. 3. Bursitis. 4. AC joint arthritis. Visualization of the subacromial space was difficult due to excessive bursitis. A bursectomy was performed using a combination of radiofrequency device as well as a 4.0-mm full radius motorized shaver. The soft tissue on the undersurface of the acromion was debrided utilizing the 4.0-mm full radius shaver and the radiofrequency device was used for hemostasis. At this point, the coracoacromial ligament was released with the radiofrequency device and the acromial branch of the thoracoacromial artery was coagulated with the same instrument. Subacromial decompression was performed with a 4.0-mm conical gaye using both the medial portal and the "cutting-block" precision acromioplasty technique from the posterior portal. The undersurface of the acromion was resected to a flat, smooth surface to allow unrestricted excursion of the rotator cuff. There were multiples adhesions noted within the subacromial space. Adhesions were found within the anterior, posterior, and lateral gutters. These adhesions were scarred into anterior and posterior portion of rotator cuff limiting range of motion. Using the 4.0-mm motorized shaver and radiofrequency probe, adhesions were debrided and removed. All the bleeding surfaces were coagulated. Afterwards, the shoulder was taken through range of motion and there was a notable improvement in range of motion and unrestrictive excursion of rotator cuff muscle and tendons. After adequate subacromial decompression, attention was then turned to the acromioclavicular joint which was localized using a 21-gauge spinal needle. A single 1-cm incision was placed on the superior aspect of the acromioclavicular joint, and the arthroscope and radiofrequency device were then inserted. Utilizing the radiofrequency device for hemostasis as well as tissue ablation, the perimeter of the distal clavicle was denuded of soft tissue. Care was taken to preserve the superoposterior soft tissue ligamentous attachments to the distal clavicle. A 4.0-mm conical gaye was introduced through the superior portal and 7 mm of distal clavicle was excised. A 1 mm of medial acromion was also resected. All resected bone was planed to a smooth, flat surface, and was checked by arthroscopic visualization from the superior AC joint portal. After adequate subacromial decompression, attention was then turned to the rotator cuff tear, which was easily visualized after adequate bursectomy had been performed. An auxiliary lateral portal was placed 2 cm posterior to the original lateral portal, after a correct "-man's angle" was determined using a transdeltoid 21 gauge spinal needle. Arthroscopic soft tissue releases were performed using an elevator at the coracohumeral ligament insertion and superior glenoid to free up the rotator cuff to provide adequate excursion to support a repair to the greater tuberosity. Next, the greater tuberosity was gently debrided with a combination of the 4.0 mm straight shaver and radiofrequency device, and the bone was denuded to a bleeding surface using the 4.0-mm gaye. The lateral margin of the rotator cuff tear was debrided to a smooth and stable tendon surface using the 4.0-mm shaver. Two 4.5-mm Arthrex corkscrew suture anchors were placed with the proper "-man's angle" into the greater tuberosity, and a mattress suture from each anchor was passed through supraspinatus 10 mm medial to the torn edge. These anchors formed the medial row of the double row repair. The arm was abducted to 70 degrees, and the leading edge of the cuff was drawn to its proper insertion on the greater tuberosity. The #2 FiberWire mattress sutures were tied with standard arthroscopic knot tying techniques - Syed knots and half hitches using a knot pusher. The remaining sutures were secured to the tuberosity with two 4.5-mm PushLock absorbable anchors, which were placed with standard technique into the lateral aspect of the greater tuberosity approximately 1 cm lateral to the medial row anchors. One suture strand from each knot was crossed to the diagonal PushLock anchor along with the suture strand from the corresponding anchor directly medial. This linking of the medial and lateral row formed a "suture bridge" rotator cuff repair. The ends of the remaining sutures were then cut. The shoulder was put through a passive ROM, and the rotator cuff repair was noted to be stable through a ROM of 130/50. No prominence of the suture knots or of rotator cuff tissue was noted to impinge during abduction and internal rotation. The subacromial space was then irrigated with sterile saline, and closure was instituted with sutures. A dressing was placed consisting of Xeroform, 4x4's, ABD pads, and tape. The patient was placed in a sling with an ABD pad in the axilla. The patient was then placed in a supine position and extubated without incident. The patient was transferred to the recovery room in stable condition, having tolerated the procedure well. Postoperatively, the patient will be maintained in an abduction sling, also provided with my rehab protocol, defining the restriction and sling use for 6-8 weeks. Followup in four to eight weeks. The sponge and needle count at the close of the case was correct. The attending surgeon was scrubbed and present for all the critical portions of the case, including all of the intra-articular arthroscopic procedures. During this procedure, I was assisted by Haily Akhtar PA-C, who assisted in positioning the patient on the operating room table as well as transferring the patient from the operating room table to the recovery room stretcher. In addition, Haily Akhtar PA-C, assisted me during the actual operative procedure by positioning the patient's extremity to allow for easier arthroscopic access to all areas of the joint. The presence of Haily Akhtar PA-C, as my operative production assistant, was medically necessary to ensure the utmost safety of the patient in the pre, intra-, and postoperative periods. Wilfredo Luu MD
== END 2018-09-17 14:50 | disposition home or self-care (01) ==
LOC: H.OPSURG 06:16
PROVIDERS: ATTEND Orthopaedic Surgery
DX: M65.811 Other synovitis and tenosynovitis, right shoulder (principal); M75.41 Impingement syndrome of right shoulder; M19.011 Primary osteoarthritis, right shoulder; J44.9 Chronic obstructive pulmonary disease, unspecified; E78.5 Hyperlipidemia, unspecified; I10 Essential (primary) hypertension; N40.0 Benign prostatic hyperplasia without lower urinary tract symptoms; K21.9 Gastro-esophageal reflux disease without esophagitis; E11.51 Type 2 diabetes mellitus with diabetic peripheral angiopathy without gangrene; K74.60 Unspecified cirrhosis of liver; Z86.19 Personal history of other infectious and parasitic diseases
CPT/HCPCS: 29820; 29825; 29826; 29827; 36415; 82948; 85610; 85730; C1713; J0171; J0690; J1644; J1885; J2250; J2370; J2704; J2710; J2765; J3010; J7030; J7120

== ENCOUNTER 2018-10-03 10:48 | Emergency (ER) | payer MEDICARE, MEDICAID ==
[2018-10-03 10:55] VITALS: RESP 18
[2018-10-03 10:56] VITALS: BMI 28.8
--- NOTE | 2018-10-03 11:47 | ED PDOC ---
HPI: Back Time Seen by Provider: 10/03/18 11:07 Chief Complaint (Nursing): Back Pain History Per: Patient History/Exam Limitations: no limitations Onset/Duration Of Symptoms: Hrs Current Symptoms Are (Timing): Still Present Quality Of Discomfort: Dull, Aching Severity: Mild Previous Symptoms: Back Pain Exacerbating Factor(s): Turning, Movement Additional Complaint(s): Pt. 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 2 hrs. ago. Pt. took motrin initially with mild pain relief however pain returns with certain positional movements. Pt. denies fevers, weakness, incontinence. Past Medical History Vital Signs: Last Vital Signs Temp 97.4 F L 10/03/18 10:54 Pulse 53 L 10/03/18 10:54 Resp 18 10/03/18 10:54 BP 124/63 10/03/18 10:54 Pulse Ox 98 10/03/18 10:54 - Medical History PMH: Arthritis, Benign Prostatic Hyperplasia, Bipolar Disorder, COPD, Depression, Diabetes (type II), Emphysema, Hepatitis (C), HTN, Hypercholesterolemia, Parkinson's Disease Denies: Chronic Kidney Disease - Surgical History Surgical History: Appendectomy, Endoscopy, Hernia Repair (x14) Other surgeries: Right shoulder rotator cuff repair about 2.[address] Clemens, no complications. - Family History Family History: States: Unknown Family Hx - Home Medications Home Medications: Ambulatory Orders Medication Instructions Recorded Atorvastatin [Lipitor] 10 mg PO DAILY 05/01/17 Clonazepam [Klonopin] 0.5 mg PO BID 05/01/17 Gemfibrozil [Lopid] 600 mg PO BID 05/01/17 Lurasidone Hydrochloride [Latuda] 40 mg PO DAILY 05/01/17 Meloxicam [Mobic] 15 mg PO DAILY 05/01/17 Topiramate [Topamax] 100 mg PO TID 05/01/17 Valsartan/Hydrochlorothiazide 1 each PO DAILY 05/01/17 [Diovan Hct 160-12.5 mg Tab] metFORMIN [glucOPHAGE] 500 mg PO BID 05/01/17 Clopidogrel [Plavix] 75 mg PO DAILY 09/17/18 Docusate [Colace] 100 mg PO DAILY 09/17/18 Gabapentin [Neurontin] 900 mg PO DAILY 09/17/18 Ondansetron HCl [Zofran] 4 mg PO DAILY 09/17/18 Rivastigmine [Exelon 13.3 mg/24 hr 13.3 mg TD DAILY 09/17/18 Patch] Cyclobenzaprine [Cyclobenzaprine 10 mg PO BID #10 tab 10/03/18 HCl] predniSONE [predniSONE Tab] 20 mg PO DAILY #7 tab 10/03/18 - Allergies Allergies/Adverse Reactions: Allergies Allergy/AdvReac Type Severity Reaction Status Date / Time iodine Allergy URTICARIA Verified 10/03/18 11:06 latex Allergy URTICARIA Verified 10/03/18 11:06 opiates Allergy WITHDRAWAL Uncoded 10/03/18 11:06 Review of Systems Constitutional: Negative for: Fever, Chills Musculoskeletal: Positive for: Back Pain Skin: Negative for: Rash Neurological: Negative for: Weakness, Numbness Physical Exam - Physical Exam Appears: Positive for: Well, Non-toxic Head Exam: Positive for: ATRAUMATIC Skin: Positive for: Normal Color, Warm, Dry. Negative for: Rash Cardiovascular/Chest: Positive for: Regular Rate, Rhythm Respiratory: Positive for: Normal Breath Sounds Gastrointestinal/Abdominal: Positive for: Normal Exam, Soft. Negative for: Tenderness Back: Positive for: Normal Inspection, Other (Diffuse paralumbar tenderness, (-) midline tenderness). Negative for: L CVA Tenderness, R CVA Tenderness Extremity: Positive for: Normal ROM Neurologic/Psych: Negative for: Motor/Sensory Deficits (LE strength 5/5 bilaterally, Sensation intact to b/l LE. (-) straight leg bilaterally) - ECG O2 Sat by Pulse Oximetry: 98 Medical Decision Making Medical Decision Making: Fingerstick glu ordered. Valium po Pt. on plavix, nsaids not given. Fingerstick 77 Prednisone po given. Pt. well appearing, back pain improved, he is ambulating with his cane without difficulty and neuro remains intact. Pt. will f/u with ortho or return to ED if worse. d/w pt. will give low dose prednisone but pt. is to take blood sugar frequently while on meds and d/c if hyperglycemic. Disposition - Clinical Impression Clinical Impression: Back pain - Patient ED Disposition Is Patient to be Admitted: No Counseled Patient/Family Regarding: Diagnosis, Need For Followup, Rx Given - Disposition Referrals: Pedro Pablo Kramer III, MD [Staff Provider] - Disposition: Routine/Home Disposition Time: 14:10 Condition: STABLE Additional Instructions: frequent blood sugar checks while on prednisone Prescriptions: Cyclobenzaprine [Cyclobenzaprine HCl] 10 mg PO BID #10 tab predniSONE [predniSONE Tab] 20 mg PO DAILY #7 tab Instructions: Upper Back Pain (DC) Forms: [employer] (N[place]ien)
[2018-10-03 14:46] VITALS: BP 126/84; PULSE 84; TEMP 98.2; O2SAT 100
== END 2018-10-03 14:15 | disposition home or self-care (01) ==
LOC: H.ER 10:48
DX: M54.5 Low back pain (principal); E11.9 Type 2 diabetes mellitus without complications; Z79.84 Long term (current) use of oral hypoglycemic drugs

== ENCOUNTER 2018-12-05 07:23 | Emergency (ER) | payer MEDICARE, MEDICAID ==
[2018-12-05 07:29] VITALS: BMI 27.7
--- NOTE | 2018-12-05 08:03 | ED PDOC ---
HPI: CCC, URI, Sore Throat Time Seen by Provider: 12/05/18 07:38 Chief Complaint (Nursing): Fever Chief Complaint (Provider): Fever History Per: Patient History/Exam Limitations: no limitations Onset/Duration Of Symptoms: Days Associated Symptoms: Fever (low grade), Sore Throat, Cough, Sputum (green), Nausea. denies: Vomiting, Diarrhea Additional Complaint(s): Patient is a 68 year old male with a past medical history of HTN, diabetes, Parkinsons, and COPD, who presents to the emergency department complaining of sore throat, low grade fever, cough productive of green sputum, associated with body aches, onset x2 days. Patient denies having any shortness of breath, vomiting, or diarrhea. PMD: No provider Past Medical History Reviewed: Historical Data, Nursing Documentation, Vital Signs Vital Signs: Last Vital Signs Temp 98.6 F 12/05/18 07:27 Pulse 61 12/05/18 07:27 Resp 18 12/05/18 07:27 BP 152/69 H 12/05/18 07:27 Pulse Ox 99 12/05/18 07:27 - Medical History PMH: Arthritis, Benign Prostatic Hyperplasia, Bipolar Disorder, COPD, Depression, Diabetes (type II), Emphysema, Hepatitis (C), HTN, Hypercholesterolemia, Parkinson's Disease Denies: Chronic Kidney Disease - Surgical History Surgical History: Appendectomy, Endoscopy, Hernia Repair (x14) - Family History Family History: States: Unknown Family Hx - Home Medications Home Medications: Ambulatory Orders Medication Instructions Recorded Atorvastatin [Lipitor] 10 mg PO DAILY 05/01/17 Clonazepam [Klonopin] 0.5 mg PO BID 05/01/17 Gemfibrozil [Lopid] 600 mg PO BID 05/01/17 Lurasidone Hydrochloride [Latuda] 40 mg PO DAILY 05/01/17 Meloxicam [Mobic] 15 mg PO DAILY 05/01/17 Topiramate [Topamax] 100 mg PO TID 05/01/17 Valsartan/Hydrochlorothiazide 1 each PO DAILY 05/01/17 [Diovan Hct 160-12.5 mg Tab] metFORMIN [glucOPHAGE] 500 mg PO BID 05/01/17 Clopidogrel [Plavix] 75 mg PO DAILY 09/17/18 Docusate [Colace] 100 mg PO DAILY 09/17/18 Gabapentin [Neurontin] 900 mg PO DAILY 09/17/18 Ondansetron HCl [Zofran] 4 mg PO DAILY 09/17/18 Rivastigmine [Exelon 13.3 mg/24 hr 13.3 mg TD DAILY 09/17/18 Patch] Cyclobenzaprine [Cyclobenzaprine 10 mg PO BID #10 tab 10/03/18 HCl] predniSONE [predniSONE Tab] 20 mg PO DAILY #7 tab 10/03/18 Azithromycin [Zithromax] 250 mg PO DAILY #6 tab 12/05/18 Benzonatate [Tessalon Perle] 100 mg PO Q8 #12 capsule 12/05/18 - Allergies Allergies/Adverse Reactions: Allergies Allergy/AdvReac Type Severity Reaction Status Date / Time iodine Allergy URTICARIA Verified 10/03/18 11:06 latex Allergy URTICARIA Verified 10/03/18 11:06 opiates Allergy WITHDRAWAL Uncoded 10/03/18 11:06 Review of Systems ROS Statement: Except As Marked, All Systems Reviewed And Found Negative Constitutional: Positive for: Fever (low grade) ENT: Positive for: Throat Pain Respiratory: Positive for: Cough, Shortness of Breath Gastrointestinal: Positive for: Nausea (mild). Negative for: Vomiting, Diarrhea Physical Exam - Reviewed Nursing Documentation Reviewed: Yes Vital Signs Reviewed: Yes - Physical Exam Appears: Positive for: Non-toxic, No Acute Distress Head Exam: Positive for: ATRAUMATIC, NORMOCEPHALIC Skin: Positive for: Normal Color, Warm, Dry Eye Exam: Positive for: Normal appearance, EOMI, PERRL ENT: Positive for: Normal ENT Inspection Neck: Positive for: Normal, Painless ROM, Supple Cardiovascular/Chest: Positive for: Regular Rate, Rhythm. Negative for: Murmur Respiratory: Positive for: Normal Breath Sounds. Negative for: Respiratory Distress Gastrointestinal/Abdominal: Positive for: Normal Exam, Soft. Negative for: Tenderness Back: Positive for: Normal Inspection. Negative for: L CVA Tenderness, R CVA Tenderness, Vertebral Tenderness Extremity: Positive for: Normal ROM. Negative for: Pedal Edema, Deformity Neurological/Psych: Positive for: Alert, Oriented. Negative for: Motor/Sensory Deficits - ECG O2 Sat by Pulse Oximetry: 99 (RA) Pulse Ox Interpretation: Normal Medical Decision Making Medical Decision Making: Time: 07 Plan: --Chest xray 2 views --Glucose, Blood, POC --Influenza A B Scribe Attestation: Documented by Yohannes Choi, acting as a scribe Anuradha Wheatley MD. Provider Scribe Attestation: All medical record entries made by the Scribe were at my direction and personally dictated by me. I have reviewed the chart and agree that the record accurately reflects my personal performance of the history, physical exam, medical decision making, and the department course for this patient. I have also personally directed, reviewed, and agree with the discharge instructions and disposition. Disposition - Clinical Impression Clinical Impression: Bronchitis - Patient ED Disposition Is Patient to be Admitted: No Counseled Patient/Family Regarding: Studies Performed, Diagnosis, Need For Followup, Rx Given - Disposition Referrals: [facility] [Outside] Disposition: Routine/Home Disposition Time: 08:53 Condition: FAIR Prescriptions: Azithromycin [Zithromax] 250 mg PO DAILY #6 tab Benzonatate [Tessalon Perle] 100 mg PO Q8 #12 capsule Instructions: Acute Bronchitis Forms: [employer] (Czech)
[2018-12-05 09:34] VITALS: BP 140/70; PULSE 64; RESP 20; TEMP 97.6; O2SAT 98
--- NOTE | 2018-12-05 11:04 | RAD ---
Date of service: 12/05/2018 HISTORY: cough COMPARISON: 11/04/2018 TECHNIQUE: Chest PA and lateral views FINDINGS: LUNGS: No active pulmonary disease. PLEURA: No significant pleural effusion identified. No pneumothorax apparent. CARDIOVASCULAR: There is atherosclerotic calcification of the thoracic aorta. Normal cardiac size. No pulmonary vascular congestion. OSSEOUS STRUCTURES: No significant abnormalities. VISUALIZED UPPER ABDOMEN: Normal. OTHER FINDINGS: Spinal stimulator module overlying the right hemithorax with leads extending of the right side of the neck. IMPRESSION: No active disease.
== END 2018-12-05 09:35 | disposition home or self-care (01) ==
LOC: H.ER 07:23
DX: J40 Bronchitis, not specified as acute or chronic (principal)